=== PATIENT | female | born 1980 | race Caucasian/White ===

== ENCOUNTER 2021-09-24 01:01 | Day surgery (SDC) | payer OTHER, SELFPAY ==
[2021-09-14 15:06] VITALS: BMI 20.7
--- NOTE | 2021-09-14 15:14 | PC.NURSE ---
Report to the Outpatient Waiting Room, entrance under the green pavilion located off [facility], at time 1200 on date 09/24/21. OR Time: 1400. - You and your visitor will be asked a series of questions to screen for COVID 19 for your protection. - A mask is required within the hospital. One visitor will be allowed to accompany the patient into the hospital. Patients visitor will be instructed to remain with patient at all times or leave the building. We will allow the visitor to come back to the postoperative area when patient is ready. Preoperative COVID Testing Requirements: No COVID Test needed if: (proof is required; if not received patient will have Rapid Test prior to entry) - Patient has received COVID Vaccine at least 14 days prior to procedure date or - Patient has positive COVID test result within last 90 days of surgery date. COVID Test needed if above criteria is not met Patients may have clear liquids (water, carbonated beverages, clear teas, apple juice) until 3 hours prior to surgery with a maximum of 20 ounces. - No food from midnight until time of surgery Take the following medications with a SIP of water the morning of surgery: NONE Medications to discontinue per physician: N/A Date to take last dose: N/A Please no make-up, nail bolivian, hairspray, perfume, deodorant, or body powder the day of surgery. No jewelry (including any body piercings) or valuables the day of surgery, leave them at home. Please take a shower or bath the night before, or the morning of, surgery with an antibacterial soap. Wear comfortable, loose fitting clothing. - Jewelry must be removed prior to entering the operating room. Rings and piercings that are not removed may be cut off. - The hospital will not accept responsibility for valuables. - Please leave all valuables, including medications, at home the day of surgery. If you are going home after surgery, a licensed special needs bus driver must drive you home. - NO public transportation without another adult. - We recommend that an adult stay with you for 24 hours following discharge. - We also recommend that you do not drive, make important decision, drink alcoholic beverages, or take any drugs that were not prescribed by your health care provider for at least 24 hours after your discharge time. Follow any additional instructions given to you from your surgeon. Telephone instructions given to HARSHAL SHER and asked if any additional questions and then verbalized understanding. Patient advised to call surgeon office or pre surgery nurse liaison [phone] if any additional questions.
[2021-09-24] VITALS (8 sets, daily range): BP systolic 93–111; BP diastolic 56–70; PULSE 54–72; RESP 12–20; TEMP 36.4–36.8; O2SAT 97–100
[2021-09-24] MEDS: LACTATED RINGERS 1,000 ML 30 ML IV CONT ×2 (12:30→14:19)
--- NOTE | 2021-09-24 12:48 | P.OP_ITS ---
Procedure Note - Detailed Date of Procedure 09/24/21 Pre-op Diagnosis hx of breast augmentation Post-op Diagnosis Same Procedure Performed Bilateral breast implant exchange Surgeon Maico Gomes MD Anesthesia General Findings Textured style 410 implants removed. No evidence of rupture. Implants bilateral Emely Hector SoftTouch 525cc Right: REF# [id number] SN [id number] Left: REF# [id number] SN [id number] Description of Procedure Preoperatively the risks, benefits, alternatives were discussed in extensive detail. I wanted her to be very realistic about the risks involved as well as expectations. We had a lengthy discussion about her goals. She understands the limitations of the procedure. They would like to send the capsules to pathology (they understand this would be at their expense). All questions were answered to her satisfaction today. Consent was obtained. Patient was marked in the preoperative holding area with her verification. She was taken to the operating room placed supine on the operating room table. Anesthesia provided by anesthesiology and prepped and draped in a standard sterile fashion. Surgical time-out was taken. 1% lidocaine and 0.25% Marcaine with epinephrine was used anesthetize as a field block. A 15 blade used to excise the IMF scar. Dissection was continued down to the capsules identified. Her capsule was firmly adherent posteriorly and anteriorly to pectoralis muscle. Removal was causing significant injury to muscle bilateral so removal was discontinued. This was sent to pathology. There were no worrisome features Copiously irrigated with saline solution on TUR tubing. Verified strict he mostasis. Betadine solution was used to irrigate the pocket. Throughout the procedure I did use Tegaderm nipple Scott. Ballard funnel was used and the implant was introduced into the pocket. This was closed using a 2-0 Vicryl followed by 3-0 Monocryl in a running subcuticular 4-0 Monocryl and finally tissue glue. Surgical bra was placed. Patient was woken taken to the PACU without difficulty. All instrument sponge counts were correct at the end of the case. Estimated Blood Loss 25 Drains No Packing No Pathology None sent (Bilateral breast capsules) Complications No immediate complications Condition Stable Disposition PACU
--- NOTE | 2021-09-24 12:49 | P.PNAN_ITS ---
Anes - Initial Pre Proc Eval Procedure: Operation Date: 09/24/21 14:00 Proposed Procedures p Bilateral Breast Implant Exchange - Maico Gomes MD Date/Time: 09/24/21 12:49 Surgeon: Maico Gomes MD Pre Op Diagnosis: hx of breast augmentation Patient Data Age: 40 Gender: F Height: 1.75 m Weight: 63.5 kg Allergies Allergy/AdvReac Type Severity Reaction Status Date / Time No Known Allergies Allergy Unverified 09/24/21 12:45 Home Medications Medication Instructions Recorded Confirmed Type carisoprodol 350 mg tablet 350 mg PO TID PRN #21 tablet 09/10/21 09/24/21 Rx docusate sodium 100 mg capsule 100 mg PO DAILY #14 cap 09/10/21 09/24/21 Rx ondansetron 4 mg disintegrating 4 mg PO Q8H #21 tablet 09/10/21 09/24/21 Rx tablet oxycodone-acetaminophen 5 mg-325 1 tablet PO Q6H PRN #30 tablet 09/10/21 09/24/21 Rx mg tablet Patient hx anesthesia problems: none Family hx anesthesia problems: none Results Review: All pre-operative results and documents have been reviewed as part of the pre-operative evaluation. [facility] Social History Social History Smoking packs per day: 1 Smoking cigarettes per day: 20.0 Years smoked: 12 Smoking pack-years: 12.00 Smoking status: Former smoker Tobacco type: cigarettes Smoking end date: 07/04/13 Alcohol intake: current Drinks per week: 2 Substance use: never Substance use type: does not use Living arrangements: with family Spiritual care concerns: No Anes - Eval Final PreProcedure Day of Procedure 09/24/21 12:49 Patient weight: normal Heart: regular rate and rhythm Lungs: clear to auscultation and normal air movement Airway: Mallampati scale class II Neurological: alert and oriented Last oral intake: >/= 8 hours ASA classification: II Emergent: no Anesthetic plan: proceed Anesthesia type and monitoring: general LMA and standard monitoring Results Review: All pre-operative results and documents have been reviewed as part of the pre-operative evaluation. Informed Consent: The patient's anesthetic plan and its attendant risks and benefits were discussed with the patient/family/POA. Questions were solicited and answers provided to the satisfaction of the patient/family/POA.
--- NOTE | 2021-09-24 13:09 | WPDHPUPDATE1 ---
History and Physical Update Update Date/Time: 09/24/21 13:09 History and Physical has been reviewed, including an updated exam of the patient. There are NO changes in the patient's condition. Risks, benefits, and alternatives have been discussed and questions answered. Patient agrees to proceed with procedure.
[2021-09-24] MEDS: TRANEXAMIC ACID 1,000MG/ISO100 1,000 MG/100 ML BAG 200 MG IVPB (13:12)
[2021-09-24] MEDS: BUPIVACAINE HCL 0.25% PF 30 ML VIAL INFILTRATE (13:14)
[2021-09-24] MEDS: ceFAZolin 2 GM/D5W 50 ML 2 GM/50 ML BAG IVPB (13:21)
[2021-09-24] MEDS: fentaNYL CITRATE INJ (*CRX) 100 MCG/2 ML VIAL 25 MCG IV PUSH (14:31)
[2021-09-24] MEDS: diphenhydrAMINE HCl INJ 50 MG/ML VIAL 25 MG IV PUSH (14:40)
[2021-09-24] MEDS: oxyCODONE HCL (*CRX) 5 MG TAB IR PO (15:25)
== END 2021-09-24 15:50 | disposition home or self-care (01) ==
PROVIDERS: Visit Provider Surgery Plastic and Reconstructive Surgery
PROC: (CPT 19342; principal; 2021-09-24 14:00)
DX: Z45.812 Encounter for adjustment or removal of left breast implant (principal); Z45.811 Encounter for adjustment or removal of right breast implant; Z87.891 Personal history of nicotine dependence
CPT/HCPCS: 19370; 19325; A9270; J0690; J1100; J1170; J1200; J1580; J2250; J2405; J2704; J3010; J7120